=== PATIENT | female | born 1980 | race Caucasian/White ===

== ENCOUNTER 2019-06-29 08:44 | Emergency (ER) | payer MEDICAID ==
--- NOTE | 2019-06-29 09:19 | EDM.PDOC ---
ED HPI GENERAL MEDICAL PROBLEM - General Chief Complaint: PANMAN Problem Stated Complaint: CRAMPS Time Seen by Provider: 06/29/19 08:49 Source of Information: Reports: Patient History Limitations: Reports: No Limitations - History of Present Illness INITIAL COMMENTS - FREE TEXT/NARRATIVE: History of present illness: []Patient is a who took a home test 2 days ago that was positive. She had cramping a week ago and has ongoing cramping that is in her mid abdomen. She denies any vaginal bleeding. Miscarriage in the past and is concerned that she may be miscarrying again. Review of systems: As per history of present illness and below otherwise all systems reviewed and negative. Past medical history: As per history of present illness and as reviewed below otherwise noncontributory. Surgical history: As per history of present illness and as reviewed below otherwise noncontributory. Social history: No reported history of drug or alcohol abuse. Family history: As per history of present illness and as reviewed below otherwise noncontributory. Physical exam: General: Well developed, well nourished in NAD HEENT: Atraumatic, normocephalic, pupils reactive, negative for conjunctival pallor or scleral icterus, mucous membranes moist, throat clear, neck supple, nontender, trachea midline. Lungs: Clear to auscultation, breath sounds equal bilaterally, chest nontender. Heart: S1S2, regular, negative for clicks, rubs, or JVD. Abdomen: NABS, Soft, nondistended, nontender. Negative for masses or hepatosplenomegaly. Negative for costovertebral tenderness. Pelvis: Stable nontender. Genitourinary: Deferred. Rectal: Deferred. Extremities: Atraumatic, negative for cords or calf pain. Neurovascular unremarkable. Neuro: Awake, alert, oriented. Cranial nerves II through XII unremarkable. Cerebellum unremarkable. Motor and sensory unremarkable throughout. Exam nonfocal. Skin:warm and dry Diagnostics: HCG Quant, UA, OB ultrasound-11 week 5 day IUP Therapeutics: None ED Course: Stable Impression: 11 week IUP, UTI Prescriptions: Nitrofurantoin Plan: Take meds as directed, follow up with your primary care physician, return to ER if symptoms worsen or change. Definitive disposition and diagnosis as appropriate pending reevaluation and review of above. - Related Data Allergies Allergy/AdvReac Type Severity Reaction Status Date / Time No Known Allergies Allergy Verified 06/29/19 08:58 Home Meds: Home Meds ClonazePAM [KlonoPIN] 0.5 mg PO DAILY 06/29/19 [History] FLUoxetine [PROzac] 20 mg PO DAILY 06/29/19 [History] Gabapentin [Neurontin] 600 mg PO DAILY 06/29/19 [History] Nitrofurantoin Macrocrystal [Macrodantin] 100 mg PO BID #14 capsule 06/29/19 [Rx ] Past Medical History Neurological History: Reports: Seizure Psychiatric History: Reports: Anxiety, Bipolar - Infectious Disease History Infectious Disease History: Reports: None - Past Surgical History Female Surgical History: Reports: Section Social & Family History - Family History Family Medical History: Noncontributory - Tobacco Use Smoking Status *Q: Current Every Day Smoker Years of Tobacco use: 25 Packs/Tins Daily: 0.3 - Caffeine Use Caffeine Use: Reports: Coffee - Recreational Drug Use Recreational Drug Use: No ED ROS GENERAL - Review of Systems Review Of Systems: See Below ED EXAM - Physical Exam Exam: See Below Course - Vital Signs Last Recorded V/S: Last Vital Signs Temp 98.3 F 06/29/19 09:04 Pulse 96 06/29/19 09:04 Resp 17 06/29/19 09:04 BP 124/105 H 06/29/19 09:04 Pulse Ox 98 06/29/19 09:04 - Orders/Labs/Meds Labs: Laboratory Tests 06/29/19 06/29/19 Range/Units 09:15 09:18 HCG, Quant 64260.0 mIU/mL Urine Color YELLOW Urine Appearance SLT CLOUDY Urine pH 7.0 (5.0-8.0) Ur Specific [place] 1.015 (1.001-1.035) Urine Protein NEGATIVE (NEGATIVE) mg/dL Urine Glucose (UA) NEGATIVE (NEGATIVE) mg/dL Urine Ketones NEGATIVE (NEGATIVE) mg/dL Urine Occult Blood NEGATIVE (NEGATIVE) Urine Nitrite POSITIVE H (NEGATIVE) Urine Bilirubin NEGATIVE (NEGATIVE) Urine Urobilinogen 0.2 (<2.0) EU/dL Ur Leukocyte Esterase SMALL H (NEGATIVE) Urine RBC 0-3 (0-2/HPF) Urine WBC 3-5 (0-5/HPF) Ur Epithelial Cells FEW (NONE-FEW) Urine Bacteria 3+ H (NEGATIVE) Departure - Departure Time of Disposition: 12:07 Disposition: Home, Self-Care 01 Condition: Good Clinical Impression: Qualifiers: Weeks of gestation: 11 weeks Qualified Code(s): Z3A.11 - 11 weeks gestation of UTI (urinary tract infection) Qualifiers: Urinary tract infection type: site unspecified Hematuria presence: without hematuria Qualified Code(s): N39.0 - Urinary tract infection, site not specified - Discharge Information *PRESCRIPTION DRUG MONITORING PROGRAM REVIEWED*: No *COPY OF PRESCRIPTION DRUG MONITORING REPORT IN PATIENT VIDA: No Prescriptions: Nitrofurantoin Macrocrystal [Macrodantin] 100 mg PO BID #14 capsule Referrals: PCP,None [Primary Care Provider] - Forms: ED Department Discharge Additional Instructions: The following information is given to patients seen in the emergency department who are being discharged to home. This information is to outline your options for follow-up care. We provide all patients seen in our emergency department with a follow-up referral. The need for follow-up, as well as the timing and circumstances, are variable depending upon the specifics of your emergency department visit. If you don't have a primary care physician on staff, we will provide you with a referral. We always advise you to contact your personal physician following an emergency department visit to inform them of the circumstance of the visit and for follow-up with them and/or the need for any referrals to a consulting specialist. The emergency department will also refer you to a specialist when appropriate. This referral assures that you have the opportunity for follow-up care with a specialist. All of these measure are taken in an effort to provide you with optimal care, which includes your follow-up. Under all circumstances we always encourage you to contact your private physician who remains a resource for coordinating your care. When calling for follow-up care, please make the office aware that this follow-up is from your recent emergency room visit. If for any reason you are refused follow-up, please contact the [facility] at and asked to speak to the emergency department charge nurse. Take meds as directed, follow up with your primary care physician, return to ER if symptoms worsen or change. [facility] [address] [place] [phone]
--- NOTE | 2019-06-29 12:04 | US ---
HISTORY: with cramping. TECHNIQUE: First trimester obstetric ultrasound with transabdominal imaging. COMPARISON: No prior. FINDINGS: Living single intrauterine gestation with a crown-rump length of 4.9 cm. This correlates with an 11 week, 5 day gestation. This compares to a clinical age of 12 weeks, 4 days. The heart rate is 170 beats per minute. No subchorionic bleed seen. Left ovary is unremarkable. Blood flow is detected within the left ovary. There is likely a small corpus luteum within the right ovary. Blood flow is detected within the right ovary. No significant pelvic free fluid. IMPRESSION: 1. Living single intrauterine gestation with calculated gestational age based on ultrasound measurements of 11 weeks, 5 days. 2. No complications seen. Dictated by Gregorio Sims MD @ 06/29/2019 12:01:46 PM Dictated by: Gregorio Sims MD @ 06/29/2019 12:01:51 (Electronically Signed)
== END 2019-06-29 12:12 | disposition home or self-care (01) ==
LOC: MW.ED 08:44
DX: O23.41 Unspecified infection of urinary tract in pregnancy, first trimester (principal); O09.521 Supervision of elderly multigravida, first trimester; O99.341 Other mental disorders complicating pregnancy, first trimester; F41.9 Anxiety disorder, unspecified; F31.9 Bipolar disorder, unspecified; Z79.899 Other long term (current) drug therapy; Z3A.11 11 weeks gestation of pregnancy; O99.331 Smoking (tobacco) complicating pregnancy, first trimester; F17.210 Nicotine dependence, cigarettes, uncomplicated
CPT/HCPCS: 36415; 76815; 76815-26; 81001; 84702; 99283; 99283-25